=== PATIENT | male | born 1980 | race Hispanic/Latino ===

== ENCOUNTER → 2024-01-14 | Outpatient (CLI) | payer BC ==
[~2024-01-14] MED LIST: CEPH500B PO; METH4TAB3 PO
[2024-01-14 22:41] VITALS: PULSE 68; RESP 14
[2024-01-14 23:30] VITALS: PULSE 70; RESP 16
[2024-01-15] VITALS (11 sets, daily range): PULSE 60–74; RESP 6–16
== END | disposition home or self-care (01) ==
LOC: SLP 20:32
PROVIDERS: ATTEND Family Medicine
DX: R06.83 Snoring (principal); I10 Essential (primary) hypertension
CPT/HCPCS: 95810

== ENCOUNTER → 2024-02-25 | Outpatient (CLI) | payer BC ==
[2024-02-25 21:54] VITALS: PULSE 72; RESP 12
[2024-02-25 22:30] VITALS: PULSE 64; RESP 14
[2024-02-25 23:00] VITALS: PULSE 68; RESP 14
[2024-02-25 23:30] VITALS: PULSE 70; RESP 14
[2024-02-26] VITALS (11 sets, daily range): PULSE 68–72; RESP 14–16
== END | disposition home or self-care (01) ==
LOC: SLP 20:19
PROVIDERS: ATTEND Family Medicine
DX: G47.33 Obstructive sleep apnea (adult) (pediatric) (principal); R06.83 Snoring
CPT/HCPCS: 95811

== ENCOUNTER 2024-06-30 12:06 | Emergency (ER) | payer BC ==
[~2024-06-30] VITALS: Ht 185.4 cm; Wt 136.1 kg
--- NOTE | 2024-06-30 12:14 | ERN ---
ED Note History of Present Illness Stated Complaint: HEADACHE Chief Complaint: Headache Time Seen by MD: 12:06 Dictation: PATIENT IS A 44-YEAR-OLD MALE HERE WITH COMPLAINTS OF INTERMITTENT RIGHT RETRO- ORBITAL AND TEMPOROPARIETAL HEADACHE FOR MORE THAN 7-8 DAYS. HE STATES IT WE WILL GO AWAY WITH ADVIL. STATES THE PAIN NOW IS CURRENTLY IN THE OCCIPUT. NEUROLOGICALLY INTACT NO NAUSEA VOMITING NO FEVER NO CHILLS NO RASH. HE STATES HE TOOK SOME ADVIL PRIOR TO ARRIVAL. [facility] IS 0 ON APPROACH WITH STEADY GAIT TO TRIAGE Allergies: Coded Allergies: No Known Drug Allergies (Unverified Allergy, Unknown, 06/30/24) Home Meds Active Scripts Cephalexin Monohydrate (Keflex) 500 Mg Cap, 500 MG PO TID for 10 Days, #30 CAP Prov:PATRICIA GANNON MD 08/06/23 Methylprednisolone (Medrol) 4 Mg Tab.ds.pk, 4 MG PO AD for 6 Days, #1 PACK Prov:PATRICIA GANNON MD 08/06/23 Past Medical History Past Medical History: Hypertension Additional Past Medical Hx: KIDNEY STONE Surgical History: Other Surgical History Other: LEFT KNEE / LEFT 5TH DIGIT OF FOOT Social History: Lives with family RN Note Reviewed/Agreed w/PFSH: Yes Review of System Dictation CONSTITUTIONAL: NEGATIVE EXCEPT FOR HPI HEAD/FACE: NEGATIVE EXCEPT FOR HPI EENT: NEGATIVE EXCEPT FOR HPI RESPIRATORY: NEGATIVE EXCEPT FOR HPI GASTROINTESTINAL/ABDOMINAL: NEGATIVE EXCEPT FOR HPI GENITOURINARY: NEGATIVE EXCEPT FOR HPI MUSCULOSKELETAL: NEGATIVE EXCEPT FOR HPI INTEGUMENTARY: NEGATIVE EXCEPT FOR HPI NEUROLOGICAL/PSYCH: NEGATIVE EXCEPT FOR HPI HEADACHE HEMATOLOGIC/LYMPHATIC: NEGATIVE EXCEPT FOR HPI ALL SYSTEMS NEGATIVE, EXCEPT NOTED ABOVE. 13 POINT REVIEW OF SYSTEMS ASSESSED AND ALL NEGATIVE EXCEPT FOR ABOVE. Initial Vital Sign VS Vital Signs Date Time Temp Pulse Resp B/P (MAP) Pulse Ox O2 Delivery O2 Flow Rate FiO2 06/30/24 12:10 97.7 80 16 130/89 98 Room Air* 0 21 Physical Exam Dictation VITAL SIGNS REVIEWED GENERAL APPEARANCE: ALERT, ORIENTED X 3, MILD ACUTE DISTRESS, WELL DEVELOPED, NOURISHED. HEAD AND FACE: NON-TRAUMATIC. EYES: PERRL, PINK CONJUNCTIVAS, EYELID NO TRAUMA, ANTERIOR CHAMBER WITH ARCUS SENILIS. EARS: PINNAS INTACT AND NO SIGNS OF TRAUMA OR ERYTHEMA EAR CANALS CLEAR AND NO DISCHARGE TM NO ERYTHEMA NOSE: NO DISCHARGE, NO BLEEDING. OROPHARYNX: MOUTH NORMAL, TONGUE PINK, PHARYNX CLEAR,NO ERYTHEMA, TONSILS NO EXUDATES, NO ABSCESSES NOTED, MUCOUS MEMBRANE MOIST NECK: SUPPLE, NON-TENDER, NO THYROMEGALY, NO MASSES, NO JVD, NO BRUITS BREAST:DEFERRED CHEST:NO TENDERNESS, NO CREPITUS, NO PARADOXICAL MOVEMENT, NO RETRACTIONS LUNGS:CLEAR, WELL-VENTILATED, SYMMETRIC, NO RALES, NO WHEEZING, NO RHONCHI, NO STRIDOR, GOOD BREATH SOUNDS BILATERALLY HEART: REGULAR RATE, REGULAR RHYTHM, NO MURMUR, NO GALLOPS VASCULAR: NO PERIPHERAL EDEMA, ABDOMEN: SOFT, POSITIVE BOWEL SOUNDS, NONDISTENDED, NO GUARDING, NONTENDER, NO REBOUND, NO MASSES NO HEPATOMEGALY, NO SPLENOMEGALY, NO GARCIA'S SIGN, NO HERNIAS. RECTAL: DEFERRED GENITAL: DEFERRED NEUROLOGICAL: NORMAL SPEECH, MOTOR FUNCTION INTACT, SENSORY FUNCTION INTACT NIH IS 0 MUSCULOSKELETAL: NECK NONTENDER, FULL RANGE OF MOTION, BACK NONTENDER, FULL RANGE OF MOTION, EXTREMITIES: NONTENDER, FULL RANGE OF MOTION SKIN: COLOR PINK, DRY, NO TURGOR, NO RASH, NO LACERATIONS, NO ABRASIONS, NO CONTUSIONS. LYMPHATIC: DEFERRED Results (Laboratory/Radiology) Laboratory/Radiology Exam Type: CT HEAD/BRAIN W/O CONTRAST Clinical Information: INTERMITTENT RIGHT TEMPOROPARIETAL HEADACHE THAT OCCASIONALLY RADIATES 1 WE Comparison: None CT Dose Index (CTDI): 57.33 mGy Dose Length Product (DLP): 956.79 total mGy-cm Findings: The examination is unremarkable. Wilder-white matter junction is preserved. No intra or extra axial lesions or fluid collections are seen. Specifically, wilder and white matter are normal in signal characteristics with normal caliber of ventricles and periventricular cisterns with no evidence of intra or or extra-axial hemorrhage, lacunar infarct, or major territorial infarct, mass, or other abnormality. There are no infarcts. There are no hemorrhages. Periventricular white matter locations are preserved. The orbital contents and structures of the posterior fossa are intact. Impression: Normal CT of the head. This study was performed using dose reduction techniques to include automated exposure control and/or adjustment of the mA and/or kV according to patient size. Labs Reviewed?: Yes ED Course ED Course Orders Procedure Category Date Status Time Ct Head/Brain W/O CT 06/30/24 Resulted Contrast 12:12 Cyclobenzaprine Hcl PHA 06/30/24 Complete (Cyclobenzaprine Hcl 12:30 Ketorolac 60mg/2ml PHA 06/30/24 Complete (Toradol 60mg/2ml) 12:30 Current Medications Medications (Trade) Dose Ordered Sig/Eve Route PRN Reason Start Time Stop Time Status Last Admin Dose Admin Cyclobenzaprine HCl (Cyclobenzaprine HCl) 10 mg ONCE ONCE PO 06/30/24 12:30 06/30/24 12:31 DC Ketorolac Tromethamine (toRADol 60MG/ 2ML) 60 mg ONCE ONCE IM 06/30/24 12:30 06/30/24 12:31 DC Vital Signs Date Time Temp Pulse Resp B/P (MAP) Pulse Ox O2 Delivery O2 Flow Rate FiO2 06/30/24 12:10 97.7 80 16 130/89 100 Room Air 0 06/30/24 12:10 97.7 80 16 130/89 98 Room Air* 0 21 THIRTEEN 30, PATIENT STATES PAIN IS BEING RELIEVED WITH KETOROLAC AND FLEXERIL. DISCHARGED HOME WITH DIAGNOSIS OF TENSION HEADACHE Medical Decision Making MDM MEDICAL DISCHARGE MAKING BASED ON CT OF THE HEAD, AND TREATMENT FOR TENSION TYPE HEADACHE. CT WAS NEGATIVE AND CENTRAL NERVOUS SYSTEM LESION RULED OUT PATIENT DISCHARGED HOME WITH NELL TOLD TO SEE HIS PRIMARY CARE DOCTOR DX & DISP Disposition: Discharge Departure Impression: Primary Impression: Acute tension headache Condition: Stable Scripts Butalb/Acetaminophen/Caffeine (Esgic 50-325-40 mg Tablet) 50 Mg-325 Mg-40 Mg Tablet 2 TAB PO Q4H for HEADACHE, #20 TAB 0 Refills TWO TABLETS BY MOUTH EVERY4 HOURS P.R.N. HEADACHE, MAXIMUM SIX TABLETS IN 24 HOURS Prov: CICI ALEXANDER MANAGER IMAGE 06/30/24 Additional Instructions: FOLLOW-UP WITH PRIMARY CARE PROVIDER IN 1 TO 2 DAYS. TAKE MEDICATIONS DIRECTED HERE IN THE EMERGENCY ROOM. OKAY TO CONTINUE HOME MEDICATIONS UNLESS OTHERWISE DISCUSSED DURING YOUR VISIT IN THE EMERGENCY ROOM TODAY. RETURN TO YOUR NEAREST EMERGENCY ROOM IF SYMPTOMS WORSEN OR IF THERE IS NO IMPROVEMENT. CALL 911 IF YOU NEED IMMEDIATE ASSISTANCE. TAKE TYLENOL OR MOTRIN OV [id number] NEEDED AND IF NO CONTRAINDICATIONS ARE PRESENT. INCREASE ORAL HYDRATION. A WOUND CULTURE OR URINE CULTURE WAS ORDERED HERE IN THE EMERGENCY ROOM DEPARTMENT PLEASE FOLLOW-UP WITH PRIMARY CARE PROVIDER AND ADVISE THEM TO GET REPEAT PORTS FROM OUR FACILITY. IF YOU HAD ANY PHILIPP WRAP/SPLINTS THAT WERE APPLIED HERE, PLEASE DO NOT REMOVE THEM UNTIL YOU SEE YOUR PRIMARY CARE OR SPECIALTY. TAKE MEDICATIONS DIRECTED FOR YOUR HEADACHE. FOLLOW UP WITH YOUR PRIMARY CARE DOCTOR IN 1-2 DAYS Referrals: JAZMIN HERNANDEZ MD (PCP) Time of Disposition: 13:34 I have reviewed the case, and I agree with, Diagnosis and Plan CICI ALEXANDER NP Jun 30, 2024 12:14
--- NOTE | 2024-06-30 13:28 | HMCIMG ---
Exam Type: CT HEAD/BRAIN W/O CONTRAST Clinical Information: INTERMITTENT RIGHT TEMPOROPARIETAL HEADACHE THAT OCCASIONALLY RADIATES 1 WE Comparison: None CT Dose Index (CTDI): 57.33 mGy Dose Length Product (DLP): 956.79 total mGy-cm Findings: The examination is unremarkable. Wilder-white matter junction is preserved. No intra or extra axial lesions or fluid collections are seen. Specifically, wilder and white matter are normal in signal characteristics with normal caliber of ventricles and periventricular cisterns with no evidence of intra or or extra-axial hemorrhage, lacunar infarct, or major territorial infarct, mass, or other abnormality. There are no infarcts. There are no hemorrhages. Periventricular white matter locations are preserved. The orbital contents and structures of the posterior fossa are intact. Impression: Normal CT of the head. This study was performed using dose reduction techniques to include automated exposure control and/or adjustment of the mA and/or kV according to patient size.
[2024-06-30] MEDS ORDERED: BUTA-271 PO (13:35)
[2024-06-30] MEDS: CYCLOBENZAPRINE HCL 10 MG TABLET PO ONE (13:55)
[2024-06-30] MEDS: ketOROlac 60 MG VIAL (30MG/ML) IM ONE (13:56)
[2024-06-30 14:05] VITALS: BP 134/86; PULSE 78; RESP 16; TEMP 97.7; O2SAT 100
== END 2024-06-30 14:20 | disposition home or self-care (01) ==
LOC: EDH 12:06
DX: G44.209 Tension-type headache, unspecified, not intractable (principal); I10 Essential (primary) hypertension; Z79.899 Other long term (current) drug therapy
CPT/HCPCS: 99285; 70450; 96372; J1885